=== PATIENT | female | born 1975 | race Two or more races ===

== ENCOUNTER 2020-02-06 08:00 | Inpatient (IN) | payer OTHER ==
[~2020-02-06] VITALS: Ht 162.6 cm; Wt 97.7 kg
== END 2020-02-16 12:43 | DRG 743 ==
LOC: SURH 02-13 08:00 → OB/GYN 02-13 10:01 → O/R 02-13 10:01 → OB/GYN 02-13 19:06
PROVIDERS: ADMIT Obstetrics & Gynecology; ATTEND Obstetrics & Gynecology
PROC: 0UT70ZZ Resection of Bilateral Fallopian Tubes, Open Approach (ICD-10-PCS; 2020-02-13)
PROC: 0UT90ZZ Resection of Uterus, Open Approach (ICD-10-PCS; principal; 2020-02-13 10:00)
DX: D25.1 Intramural leiomyoma of uterus (principal); Z20.828 Contact with and (suspected) exposure to other viral communicable diseases